=== PATIENT | male | born 1975 ===

== ENCOUNTER 2019-09-12 16:31 | Outpatient (CLI) | payer OTHER | END 2019-09-12 16:34 | disposition home or self-care (01) | LOC: RAD 16:31 | DX: M54.89 Other dorsalgia (principal); M25.552 Pain in left hip; M25.562 Pain in left knee ==

== ENCOUNTER 2019-10-06 07:36 | Outpatient (CLI) | payer OTHER | END 2019-10-06 07:46 | disposition home or self-care (01) | LOC: TOM 07:36 | DX: M89.8X8 Other specified disorders of bone, other site (principal); M25.559 Pain in unspecified hip; M46.1 Sacroiliitis, not elsewhere classified; M76.21 Iliac crest spur, right hip ==